=== PATIENT | female | born 1980 | race African-American/Black ===

== ENCOUNTER 2021-02-04 11:34 | Outpatient (CLI) | payer BC | END 2021-02-04 11:35 | disposition home or self-care (01) | LOC: BICMAMMO 11:34 | PROVIDERS: ATTEND Physician Assistant | DX: Z12.31 Encounter for screening mammogram for malignant neoplasm of breast (principal); N63.10 Unspecified lump in the right breast, unspecified quadrant; N63.20 Unspecified lump in the left breast, unspecified quadrant | CPT/HCPCS: 77063; 77067 ==

== ENCOUNTER 2021-02-17 13:16 | Outpatient (CLI) | payer BC | END 2021-02-17 13:17 | disposition home or self-care (01) | LOC: BICULT 13:16 | PROVIDERS: ATTEND Physician Assistant | DX: R92.8 Other abnormal and inconclusive findings on diagnostic imaging of breast (principal) ==

== ENCOUNTER 2021-11-23 14:37 | Outpatient (CLI) | payer BC | END 2021-11-23 14:38 | disposition home or self-care (01) | LOC: BICRAD 14:37 | PROVIDERS: ATTEND Family Medicine | DX: S76.011A Strain of muscle, fascia and tendon of right hip, initial encounter (principal) ==

== ENCOUNTER 2022-03-02 08:38 | Outpatient (CLI) | payer BC | END 2022-03-02 08:39 | disposition home or self-care (01) | LOC: BICMAMMO 08:38 | PROVIDERS: ATTEND Family Medicine | DX: Z12.31 Encounter for screening mammogram for malignant neoplasm of breast (principal) | CPT/HCPCS: 77063; 77067 ==

== ENCOUNTER 2023-04-27 08:11 | Outpatient (CLI) | payer BC | END 2023-04-27 08:12 | disposition home or self-care (01) | LOC: BICMAMMO 08:11 | PROVIDERS: ATTEND Family Medicine | DX: Z12.31 Encounter for screening mammogram for malignant neoplasm of breast (principal) | CPT/HCPCS: 77063; 77067 ==

== ENCOUNTER 2024-04-28 15:15 | Outpatient (CLI) | payer BC | END 2024-04-28 15:16 | disposition home or self-care (01) | LOC: BICMAMMO 15:15 | PROVIDERS: ATTEND Family Medicine | DX: Z12.31 Encounter for screening mammogram for malignant neoplasm of breast (principal); N63.10 Unspecified lump in the right breast, unspecified quadrant | CPT/HCPCS: 77063; 77067 ==

== ENCOUNTER 2025-05-07 08:14 | Outpatient (CLI) | payer BC | END 2025-05-07 08:15 | disposition home or self-care (01) | LOC: BICMAMMO 08:14 | PROVIDERS: ATTEND Family Medicine | DX: Z12.31 Encounter for screening mammogram for malignant neoplasm of breast (principal) | CPT/HCPCS: 77063; 77067 ==

== ENCOUNTER 2025-08-19 10:14 | Outpatient (CLI) | payer BC | END 2025-08-19 10:15 | disposition home or self-care (01) | LOC: BICRAD 10:14 | PROVIDERS: ATTEND Internal Medicine | DX: M25.551 Pain in right hip (principal); M79.672 Pain in left foot ==